=== PATIENT | male | born 1950 | race Caucasian/White ===

== ENCOUNTER 2017-03-28 14:24 | Inpatient (IN) | payer BC ==
[2017-03-28 15:13] LABS: #Basophils 0.1 thou/uL (0.0-0.2); #Eosinphils 0.1 thou/uL (0.0-0.7); #Lymphocytes 2.7 thou/uL (1.20-3.40); #Monocytes 0.7 thou/uL (0.11-0.59); #Neutrophils 7.1 thou/uL (1.40-6.50); %Basophils 1.1 % (0.0-1.0); %Eosinophils 0.5 % (0.0-10.0); %Lymphocytes 25.2 % (21.0-51.0); %Monocytes 6.9 % (0.0-10.0); %Neutrophils 66.3 % (42.0-75.0); Hemoglobin 16.4 g/dL (14.0-18.0); Mean Corpuscular HGB CONC 32.6 g/dL (32.0-36.0); Mean Corpuscular Hemoglobin 29.8 pg (27.0-31.0); Mean Corpuscular Volume 91.3 fl (80.0-94.0); Mean Platelet Volume 7.9 fL (7.4-10.4); Platelet Count 306 thou/uL (130-400); Red Blood Cell (RBC) Count 5.49 mill/uL (4.70-6.10); White Blood Cell (WBC) Count 10.8 thou/uL (4.8-10.8)
[2017-03-28 15:33] LABS: ALT (SGPT) 18 U/L (8-55); AST (SGOT) 14 U/L (5-34); Albumin 4.3 g/dL (3.4-4.8); Alkaline Phosphatase 102 U/L (40-150); Anion Gap 14 mmol/L (10-20); BUN (Urea Nitrogen) 22 mg/dL (8.4-25.7); Bilirubin, Total 1.1 mg/dL (0.2-1.2); Calc. Creatinine Clearance 0 mL/min (70-130); Calcium 9.7 mg/dL (7.8-10.44); Carbon Dioxide 25 mmol/L (23-31); Chloride 107 mmol/L (98-107); Estimated GFR-MDRD 77; Globulin 2.6 g/dL (2.4-3.5); Glucose 108 mg/dL (80-115); Potassium 4.1 mmol/L (3.5-5.1); Protein, Total 6.9 g/dL (5.8-8.1); Sodium 142 mmol/L (136-145)
[2017-03-28 15:37] LABS: CKMB 2.3 ng/mL (0-6.6); Troponin I 0.096 ng/mL (< 0.028)
--- NOTE | 2017-03-28 15:51 | RAD ---
PA AND LATERAL VIEWS OF CHEST: Date: 03/28/17 HISTORY: Chest pain. FINDINGS: The heart size is borderline. The lungs are expanded without focal areas of consolidation, pneumothor ax, odell pulmonary edema, or pleural effusions. No acute osseous abnormalities are seen. IMPRESSION: No radiographic evidence of acute cardiopulmonary process. POS: [facility]
[2017-03-28 18:58] LABS: Troponin I 0.113 ng/mL (< 0.028)
[2017-03-28] MEDS ORDERED: HYDROcodone/Acetaminophen 10/325 mg Tablet PO PRN (19:53)
[2017-03-28] MEDS ORDERED: HYDROcodone/Acetaminophen 5/325 mg Tablet PO PRN (19:53)
[2017-03-28] MEDS ORDERED: Acetaminophen 325 MG TAB PO PRN (19:53)
[2017-03-28] MEDS ORDERED: Ondansetron HCl/PF 4 MG/2 ML Vial IVP PRN (19:53)
[2017-03-28] MEDS ORDERED: Ondansetron ODT 4 MG TAB PO PRN (19:53)
[2017-03-28] MEDS ORDERED: Enoxaparin Sodium 40 MG/0.4 ML SYRINGE SC SCH (20:15)
[2017-03-28] MEDS: Famotidine/PF 20 mg/2ml Vial SLOW IVP SCH (20:30)
[2017-03-28 21:10] LABS: CKMB 2.1 ng/mL (0-6.6)
--- NOTE | 2017-03-28 21:23 | HP ---
DATE OF ADMISSION: 03/28/2017 PRIMARY CARE PHYSICIAN: Ky Rocha MD INCOME TAX RETURN PREPARER: Jeannette Ponce MD TIME OF SERVICE: 2000 hours. CHIEF COMPLAINT: Atrial flutter. HISTORY OF PRESENT ILLNESS: Mr. Cleveland is a pleasant 66-year-old white male with history of atrial f lutter about 3-4 years ago. At that time, he developed acute tachycardia, went to see his primary ca re physician, was found, and was admitted to the hospital. He underwent ablation from a jacquard card cutter that came from [place] at that time and has not had a problem since then. He sees Dr. Ponce on a ye antionette basis. Last saw him in 10/2016. He is maintained on lisinopril, aspirin, and Crestor and was doing fine until about 3 days ago. At that time, he started feeling flushed. He took his blood pressure and noticed his pulse was in th e 120s. He had no lightheadedness at that time. He did have some tightness to the neck and back mus cles. He went to work on Sunday and occasionally had some shortness of breath and lightheadedness, but neve r passed out. He continued to watch his heart rate. While he was sedentary, he noticed it was in th e 130s, but when up walking around dropped down to 70s per his Fitbit. He continued to have problems on Sunday similarly. 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 Rocha's office. There, he was noted to have a heart rate in the 130s and looked like it was before. He was sent to the emergency department here to be admit erin for workup. He does complain of some chest tightness in the central area as if he was running ou t in the cold wind, though he has not been. He denies any shortness of breath. No nausea or vomitin g. No diarrhea or constipation. No fevers or chills. No cough or sputum production. No sick conta cts. In the emergency department here, he was noted to be in atrial fibrillation or atrial flutter with th e heart rate in the 130s. He was given 10 of IV Cardizem and repeat EKG did show P-waves about 300 b eats per minute with a variable block. We were called for admission. On arrival to the floor, he is feeling fine. Denies any other current complaints. PAST MEDICAL HISTORY: 1. Hypertension. 2. Hyperlipidemia. 3. Atrial flutter. PAST SURGICAL HISTORY: 1. Atrial flutter ablation 3-4 years ago by a jacquard card cutter from [place]. 2. PTCA about one year later that showed no significant coronary disease. 3. Right Achilles repair 8-10 years ago. 4. Hernia repair in the 1970s. HOME MEDICATIONS: 1. Lisinopril 20 mg p.o. daily. 2. Aspirin 81 mg daily. 3. Crestor 20 mg p.o. at bedtime. 4. Vitamin D daily. ALLERGIES: NKDA. FAMILY HISTORY: Negative for clotting or bleeding disorder. No immune dysfunction. No blood tumors . No premature coronary disease. SOCIAL HISTORY: Negative for habits x3. He is and monogamous. REVIEW OF SYSTEMS: A 10-point review of systems was performed, negative for all other systems except as stated as per HPI. PHYSICAL EXAMINATION: VITAL SIGNS: Temperature 97.7, pulse currently 92, blood pressure 109/54, respiratory rate 18, satti ng 95% on room air. GENERAL: He is awake. He is alert. He is oriented x3. He is a well-developed and well-nourished w blanco male who appears to be in no acute distress. HEENT: Normocephalic, atraumatic. Pupils are equal, round, and reactive to light bilaterally. Muco us membranes are moist. He has no visible lesions or thrush. NECK: Supple. No lymphadenopathy, JVD, or thyromegaly. He has normal carotid upstroke. There are no bruits. LUNGS: Clear to auscultation bilaterally. He has no wheezes, no rales, no rhonchi. He has good air movement. Symmetrical chest excursion. There is no prolonged expiratory phase. CARDIOVASCULAR: Regular and tachycardic. Per my exam, it is just over 100. He has no audible murmu rs. ABDOMEN: Obese. It is nontender and nondistended. He has no masses, no organomegaly. EXTREMITIES: No cyanosis. No clubbing. Trace ankle edema. He has 2+ peripheral pulses in the dors jeffrey pedis and posterior tibial arteries. SKIN: Warm, moist, and well perfused. He has no rashes or lesions. MUSCULOSKELETAL: Normal to inspection. He has no joint inflammation. No palpable effusions. Good range of motion. His right calcaneal tendon area does feel a little thicker than the left. NEUROLOGIC: Cranial nerves II-XII are grossly intact. He has 5/5 strength in all 4 of his extremiti es. He has no focal deficits. Normal speech pattern. LABORATORY DATA: Sodium is 142, potassium 4.1, chloride 107, bicarb 25, BUN 22, creatinine 0.98, and glucose 109 with a calcium of 9.7. Liver functions are completely within normal limits. CBC showed a white count of 10.8, hemoglobin 16 .4, hematocrit of 50.1, and platelet count is 306,000. Biomarker showed a CK-MB of 2.3. Troponin I was 0.096 and TSH was 1.37. Chest x-ray showed no acute cardiopulmonary disease. ASSESSMENT AND PLAN: 1. Atrial flutter, paroxysmal. The patient appears to have had a recurrence. He responded well to Cardizem in the emergency department. We will give another dose of IV Cardizem here and then put him on 60 mg p.o. q.6 hours, as we are out of IV Cardizem at present. We will ask Dr. Ponce to evalua te. 2. Demand ischemia. Troponin is 0.096. We will trend his biomarkers and get serial cardiac biomark ers through the night. We will place him on 2 liters nasal cannula continuous oxygen. I have not pu t him on nitroglycerin paste. He did have a negative cath about 2 years ago. 3. Hypertension, essential. The patient normally on lisinopril. We will hold his lisinopril tonigh t as he is going to be on Cardizem instead, and we will have p.r.n. hydralazine as needed. 4. Hyperlipidemia, on Crestor. We will continue.
[2017-03-29 02:58] VITALS: BMI 39.1
[2017-03-29 05:43] LABS: CKMB 1.9 ng/mL (0-6.6); Troponin I 0.096 ng/mL (< 0.028)
[2017-03-29] MEDS: Famotidine/PF 20 mg/2ml Vial SLOW IVP SCH (08:40)
[2017-03-29] MEDS ORDERED: Enoxaparin Sodium 40 MG/0.4 ML SYRINGE SC SCH (09:00)
--- NOTE | 2017-03-29 11:00 | PDOC.PN ---
- Subjective Encounter Start Date: 03/29/17 Encounter Start Time: 10:58 Subjective: Seen and examined feeling better - Objective Resuscitation Status: Resuscitation Status FULL:Full Resuscitation Vital Signs & Weight: Vital Signs (12 hours) Temp Pulse Resp BP BP Pulse Ox 03/29/17 09:11 134 H 115/71 03/29/17 05:32 129 H 104/68 03/29/17 05:30 129 H 20 104/68 96 03/29/17 03:55 97.6 F 66 18 119/72 98 Weight Weight 289 lb I&O: 03/28/17 03/29/17 03/30/17 06:59 06:59 06:59 Intake Total 466 Output Total 300 Balance 166 Result Diagrams: 03/28/17 15:02 03/28/17 15:02 Phys Exam - Physical Examination Constitutional: NAD HEENT: PERRLA, moist MMs, sclera anicteric, TM's clear Neck: no nodes, no JVD, supple, full ROM Respiratory: no wheezing, no rales, no rhonchi, clear to auscultation bilateral Cardiovascular: RRR, no significant murmur, no rub Gastrointestinal: soft, non-tender, no distention, positive bowel sounds Musculoskeletal: no edema, pulses present Dx/Plan (1) Atrial flutter, paroxysmal Code(s): I48.92 - UNSPECIFIED ATRIAL FLUTTER Status: Acute (2) Hypertension Code(s): I10 - ESSENTIAL (PRIMARY) HYPERTENSION Status: Acute (3) Dyslipidemia Code(s): E78.5 - HYPERLIPIDEMIA, UNSPECIFIED Status: Acute (4) Demand ischemia Code(s): I24.8 - OTHER FORMS OF ACUTE ISCHEMIC HEART DISEASE Status: Acute (5) S/P ablation of atrial flutter Code(s): Z98.89 - OTHER SPECIFIED POSTPROCEDURAL STATES * DO NOT USE *; Z86.79 - PERSONAL HISTORY OF OTHER DISEASES OF THE CIRCULATORY SYSTEM Status: Acute - Plan 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
--- NOTE | 2017-03-29 11:02 | PRG ---
CARDIOLOGY CONSULTATION NOTE DATE OF CONSULTATION: 03/29/2017 REASON FOR CONSULTATION: Atrial flutter. HISTORY OF PRESENT ILLNESS: Mr. Seun Cleveland is a delightful 66-year-old gentleman who has a history of atrial flutter ablation in 2014. He had a borderline stress test, underwent cardiac catheterization in 2015 as well showing no flow limiting disease. He has done well up until the last few days, felt weakness and fatigue, lack of energy. Finally, went to doctor. He was found to have atrial flutter with a rapid rate and was send to the emergency room. He has been here since the last night. No chest pain or pressure, just fatigue. MEDICATIONS: 1. Aspirin. 2. Rosuvastatin. 3. Lisinopril. ALLERGIES: None known. SOCIAL HISTORY: No alcohol or tobacco. REVIEW OF SYSTEMS: Constitutional: No significant weight gain or loss. Vision : No changes. Hearing: No changes. Pulmonary: No cough or wheezing. Gastrointestinal: No nausea, vomiting or diarrhea. Skin: No rashes. Neurologic: No unilateral weakness or numbness. Psychiatric: No unusual depression or anxiety. Hematologic: No unusual bruising. Genitourinary: No burning with urination. PHYSICAL EXAMINATION: GENERAL: This is a pleasant 66-year-old gentleman resting comfortably. VITAL SIGNS: His blood pressure is 115/74, pulse is variable anywhere between 80 and 140. HEENT: Eyes; sclerae nonicteric. Mouth; mucous membranes moist. NECK: Supple. No lymphadenopathy. LUNGS: Clear. No wheezing. CARDIAC: Some irregularity. No murmur, rub or gallop. ABDOMEN: Soft and nontender. EXTREMITIES: No clubbing or cyanosis. There is no edema. IMAGING DATA: EKG showed a narrow complex tachycardia when the rhythm is blocked out, it is obviously atrial flutter. ASSESSMENT: 1. Recurrent atrial flutter. 2. Increased troponin level, demand ischemia. 3. Hypertension. 4. Hypercholesterolemia. PLAN: 1. Keep n.p.o. 2. Dr. Hernandez has been notified of the patient's situation. We will keep him n.p.o. for now for possible repeat atrial flutter ablation. [facility]
[2017-03-29 12:45] LABS: CKMB 1.9 ng/mL (0-6.6); Troponin I 0.085 ng/mL (< 0.028)
--- NOTE | 2017-03-29 12:47 | CON-2 ---
DATE OF CONSULTATION: 03/29/2017 TIME OF SERVICE: 0930 RESIDENT PHYSICIAN: Krzysztof Steele M.D. ATTENDING PHYSICIAN: Jeannette Ponce M.D. REFERRING PROVIDER: Geovany Dailey M.D. REASON FOR CONSULTATION: Atrial flutter. HISTORY OF PRESENT ILLNESS: Mr. Cleveland is a pleasant 66-year-old male with past medical history of hypertension, hyperlipidemia, and atrial flutter, which was treated with ablation in 2014. He presented as an admission from the ER with a 3-day history of generalized weakness, malaise, and palpitations. He also noted that while at rest, his heart rate upon sitting it was approximately 130 beats per minute, but upon standing would drop to 70 beats per minute. Over the course of 2-3 days, he noted that his heart rate became inconsistently elevated in the 120s to 140s. He was seen by his primary care provider on the day of admission who recommended that he go to the emergency room for evaluation and treatment. In the ER, EKG was consistent with atrial flutter. He received 2 rounds of diltiazem 10 mg IV push. He was started on oral diltiazem 60 mg a.c. and at bedtime with p.r.n. diltiazem pushes. PAST MEDICAL HISTORY: 1. Hypertension. 2. Hyperlipidemia. 3. Atrial flutter, status post ablation in 2014. PAST SURGICAL HISTORY: 1. Right-sided atrial flutter ablation in 2014. 2. Cardiac catheterization in 2014 showing no significant coronary artery disease. 3. Right Achilles surgery. 4. Hernia repair. MEDICATIONS: 1. Lisinopril 20 mg daily. 2. Aspirin 81 mg daily. 3. Crestor 20 mg at bedtime. 4. Vitamin D. ALLERGIES: No known drug allergies. FAMILY HISTORY: The patient states his father had a 3-4 vessel cardiac bypass in his 50s. SOCIAL HISTORY: Denies alcohol, tobacco or illicit drug use. REVIEW OF SYSTEMS: On the day of evaluation, the patient reports occasional flush feeling with diltiazem pushes and palpitations. All other review of systems are negative. PHYSICAL EXAMINATION: VITAL SIGNS: Temperature 97.6, blood pressure 115/71, pulse prior to diltiazem push 134 after diltiazem push 80-90s, respiratory rate 20, oxygen saturation 96 % on room air. GENERAL: No acute distress. Alert and oriented x4. CARDIOVASCULAR: Normal rate, regular rhythm with no significant murmurs. Examination occurred after he had received an additional bolus of IV diltiazem. LUNGS: Clear to auscultation bilaterally. EXTREMITIES: Trace pitting edema of lower extremities bilaterally. LABORATORY FINDINGS: White blood cell count 10.8, hemoglobin 16.4, hematocrit 50.1, platelets 306, neutrophils 6.3. CMP: Sodium 142, potassium 4.1, chloride 107, bicarbonate 25, BUN 22, creatinine 0.98, estimated GFR 77, glucose 108. Calcium 9.7, bilirubin 1.1, AST 14, ALT 18, alkaline phosphatase 102, serum protein 6.9, albumin 4.3, globulin 2.6. Cardiac markers, CK-MB at time of admission 2.3, trended down to 1.9, troponin at time of admission 0.096, trended up to 1.113 and back down to 0.096. Other labs, TSH 1.3729. IMAGING: Chest x-ray in the ER revealed no acute cardiopulmonary processes. ASSESSMENT: Mr. Cleveland is a 66-year-old male with past medical history of previous atrial flutter, status post ablation who presents with a 4- day history of generalized malaise and palpitations. He was found to be in atrial flutter with a variable block that has responded to IV diltiazem. PLAN: 1. Atrial flutter: Electrophysiology has been consulted for repeat ablation. Patient ate at approximately 9:00 a.m. this morning and will need to be fasting 8 hours before procedure could occur. He has been made n.p.o. at this time. In case, he is able to undergo ablation today. We will provide p.r.n. medications for elevated heart rates and symptom management. 2. Hypertension. We will hold lisinopril since he has been receiving diltiazem. 3. Hyperlipidemia. We will continue Crestor at time of discharge. History, physical exam, and management of this patient were discussed with Dr. Ponce who was in agreement with this assessment and plan unless otherwise stated in his attestation. [facility] NETWORK[facility]
[2017-03-29] MEDS ORDERED: Metoprolol Tartrate 5 MG/5 ML VIAL IVP PRN (14:50)
--- NOTE | 2017-03-29 17:53 | CON ---
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 His problems are: 1. Recurrent atrial arrhythmias. A. Prior history of atrial flutter requiring CTI dependent, status post ablation by Dr. Chawla in 08/05/2014. B. Presentation with recurrent atrial flutter, possibly status post typical noted this admission. 2. No significant structural heart disease by history. A. 2D echo from 07/13/2014 shows LVEF 55%-60%, left atrial enlargement, no significant stenosis or regurgitation. B. History of left heart catheterization by Dr. Ponce a couple of years ago was without significant coronary artery disease, according to the patient. 3. Coronary artery risk factors including hypertension, hypercholesterolemia on Crestor and elevated BMI. ALLERGIES: None. MEDICATIONS: Lisinopril 20 mg daily, aspirin 81 mg daily, Crestor 20 mg daily, vitamin D daily. SUBJECTIVE: Mr. Cleveland is here with symptoms of palpitations. He started noticing this on Sunday when his blood pressure cuff machine also convert increased heart rates. His heart rates were rate fluctuating eventually and cause some flushing sensation, mild tightness in the neck and the back muscles were seen. He has seen his primary care physician and he was subsequently admitted to the hospital. He was noted to be in atrial flutter in the ER. His troponin was borderline elevated at 0.096, diltiazem was started. REVIEW OF SYSTEMS: The rest of 12-point system otherwise unremarkable. PAST MEDICAL HISTORY: As above. SOCIAL HISTORY: Patient denies smoking, ETOH, or drug use. PAST SURGICAL HISTORY: Significant for Achilles tendon repair, hernia repair in 1970s. FAMILY HISTORY: Negative for clotting or bleeding disorder. No premature coronary artery disease. OBJECTIVE: VITAL SIGNS: Blood pressure is 115/71, heart rate 134, respirations 12, the patient is afebrile. GENERAL: He is alert and oriented man, in no apparent distress. NECK: Supple. Jugular veins are not distended. CHEST: Coarse without crackles. CARDIAC: Heart sounds are irregularly irregular. S1, S2, variable. No murmur or gallop. ABDOMEN: Benign. Bowel sounds positive. EXTREMITIES: Lower extremities without edema, clubbing or cyanosis. Pulses are adequate. NEUROLOGIC: Patient is nonfocal. MUSCULOSKELETAL: No joint swelling or deformities. SKIN: Without rash. DATABASE: The EKG is reviewed, initially with an atrial flutter with 2:1 AV conduction, morphology is somewhat difficult to elicit. Subsequent EKGs reveal more better controlled atrial flutter rates. A 4:1, 5:1 conduction is also seen. LABORATORY DATA AND IMAGING: White blood cell count 10, hemoglobin 16.4, platelet count 306. Sodium 142, potassium 4.5, BUN is 22, creatinine 0.98, AST and ALT is 14 and 18. Troponin I is 0.96, 0.113, 0.1, and 0.096 consecutively. TSH is 1.3. Chest x-ray shows no cardiopulmonary disease. ASSESSMENT AND PLAN: Mr. Cleveland is a pleasant 66-year-old man with prior history of atrial flutter who underwent the cavotricuspid isthmus ablation back in 07/2015. He has no significant structural heart disease by history. Now presented with flutter-like symptoms for 4 days. On EKG there is atrial flutter with rapid rates, has borderline troponin changes likely demand ischemia and not suspecting definite acute coronary syndrome. He has not been anticoagulated. PLAN: We will reevaluate his EKG now that is flutter rate is better control to assess his morphology. We might consider radiofrequency ablation of this atrial flutter, possibly this admission. Risks and benefits of procedure were discussed. He might need ARIELLE prior to that. We will schedule him for a near date. In the meantime, agree with continued rate control and anticoagulants, which could be held for the date of the procedure. [facility]
[2017-03-29] MEDS: Famotidine 20 MG TAB PO SCH (20:34)
--- NOTE | 2017-03-30 08:39 | PDOC.PN ---
- Subjective Encounter Start Date: 03/30/17 Encounter Start Time: 08:38 Subjective: seen and examined doing ok - Objective Resuscitation Status: Resuscitation Status FULL:Full Resuscitation Vital Signs & Weight: Vital Signs (12 hours) Temp Pulse Resp BP BP BP Pulse Ox 03/30/17 07:46 98.3 F 105 H 17 110/73 95 03/30/17 04:01 97.5 F L 96 20 111/69 95 03/29/17 23:58 107/66 Weight Weight 288 lb 6.4 oz I&O: 03/29/17 03/30/17 03/31/17 06:59 06:59 06:59 Intake Total 466 1400 Output Total 300 1125 Balance 166 275 Result Diagrams: 03/28/17 15:02 03/28/17 15:02 Phys Exam - Physical Examination Constitutional: NAD HEENT: PERRLA, moist MMs, sclera anicteric, TM's clear, oral pharynx no lesions Neck: no nodes, no JVD, supple, full ROM Respiratory: no wheezing, no rales, no rhonchi, clear to auscultation bilateral Cardiovascular: RRR, no significant murmur, no rub Gastrointestinal: soft, non-tender, no distention, positive bowel sounds Musculoskeletal: no edema, pulses present Dx/Plan (1) Atrial flutter, paroxysmal Code(s): I48.92 - UNSPECIFIED ATRIAL FLUTTER Status: Acute (2) Hypertension Code(s): I10 - ESSENTIAL (PRIMARY) HYPERTENSION Status: Acute (3) Dyslipidemia Code(s): E78.5 - HYPERLIPIDEMIA, UNSPECIFIED Status: Acute (4) Demand ischemia Code(s): I24.8 - OTHER FORMS OF ACUTE ISCHEMIC HEART DISEASE Status: Acute (5) S/P ablation of atrial flutter Code(s): Z98.89 - OTHER SPECIFIED POSTPROCEDURAL STATES * DO NOT USE *; Z86.79 - PERSONAL HISTORY OF OTHER DISEASES OF THE CIRCULATORY SYSTEM Status: Acute - Plan cont current plan of care, plan discussed w/ family Radio frequency ablation planned for today * .
--- NOTE | 2017-03-30 09:48 | PRG ---
DATE OF SERVICE: 03/30/2017 SUBJECTIVE: Mr. Cleveland is doing fine. OBJECTIVE: VITAL SIGNS: Blood pressure 110/73, pulse is 130, it is atrial flutter. LUNGS: Clear. CARDIAC: Tachycardic. ABDOMEN: Soft, nontender. EXTREMITIES: No edema. GENERAL: The patient is completely comfortable. ASSESSMENT: Recurrent atrial flutter. PLAN: Atrial flutter ablation today. Home following that, will need to be anticoagulated with Xarel to for at least a month.
[2017-03-30] MEDS: Famotidine 20 MG TAB PO SCH (10:20)
[2017-03-30] MEDS ORDERED: Clopidogrel Bisulfate 75 MG TAB ONE (12:03)
[2017-03-30] MEDS ORDERED: Lidocaine 1% (PF) 30 ML VIAL ONE (13:16)
[2017-03-30] MEDS ORDERED: Diprivan 40 ML ONE (13:16)
[2017-03-30] MEDS ORDERED: Propofol 500 MG/50 ML VIAL ONE ×3 (13:19→15:12)
[2017-03-30] MEDS ORDERED: Heparin 10,000 UNITS/1 ML VIAL ONE (13:46)
[2017-03-30] MEDS ORDERED: Isoproterenol 0.2 MG/1 ML AMP ONE (15:08)
--- NOTE | 2017-03-30 15:28 | ECHO ---
CARDIOLOGY PROCEDURE NOTE: Date: 03/30/17 PROCEDURE: Transesophageal echocardiogram. INDICATION FOR PROCEDURE: 66-year-old gentleman with atrial flutter who was advised to undergo a transesophageal echocardiogram prior to undergoing the ablation. He was taken to the recovery area where he underwent short-acting propofol. Transesophageal probe was easily passed down the distal esophagus. IMPRESSION: 1. Normal left ventricular systolic function. Ejection fraction is estimated at 50-55%. 2. Tachycardia. 3. No evidence of left atrial or left atrial appendage thrombus. 4. Flow in the left atrial appendage greater than 1 meter per second. 5. No evidence of a patent foramen ovale. 6. Mild mitral valve regurgitation. 7. Mild tricuspid valve regurgitation. 8. Trace aortic valve regurgitation. 9. There were no complications or difficulties encountered.
[2017-03-30] MEDS ORDERED: Furosemide 40 MG/4 ML VIAL ONE (15:42)
[2017-03-30] MEDS ORDERED: Ondansetron HCl/PF 4 MG/2 ML Vial IVP PRN ×2 (15:55→17:49)
[2017-03-30] MEDS ORDERED: Propofol 200 MG/20 ML VIAL ONE (16:20)
[2017-03-30 17:39] VITALS: BP 144/88; TEMP 98.2
[2017-03-30] MEDS ORDERED: Acetaminophen 325 MG TAB PO PRN (17:49)
[2017-03-30] MEDS ORDERED: diphenhydrAMINE 25 MG CAP PO PRN (17:49)
[2017-03-30] MEDS ORDERED: Nitroglycerin 0.4 MG TAB (25 Tab Bottle) SL PRN (17:49)
[2017-03-30] MEDS ORDERED: Silver Sulfadiazine 1% Cream 50 GM JAR TOP PRN (17:49)
[2017-03-30] MEDS ORDERED: Bisacodyl 10 MG SUPP PR PRN (17:49)
[2017-03-30] MEDS ORDERED: Bisacodyl 5 MG TAB PO PRN (17:49)
[2017-03-30] MEDS ORDERED: Mag-Al 1200 mg/1200 mg/30 ML UDCUP PO PRN (17:49)
[2017-03-30] MEDS ORDERED: traMADol HCl 50 MG TAB PO PRN (17:49)
[2017-03-30] MEDS ORDERED: Temazepam 15 MG CAP PO PRN (17:49)
--- NOTE | 2017-03-31 00:25 | CCLSPC ---
DATE OF PROCEDURE: 03/30/2017 ELECTROPHYSIOLOGY STUDY AND RADIOFREQUENCY ABLATION REPORT REFERRING PHYSICIAN: Jeannette Ponce M.D. REASON FOR PROCEDURE: Mr. Cleveland is a 66-year-old man with prior history of atrial flutter with cavotricuspid isthmus ablation performed in 2014, now here with a recurrence of atrial flutter. The EKG demonstrates possible isthmus dependent counterclockwise flutter. The patient underwent ARIELLE prior to the procedure demonstrating no intracardiac clots. PROCEDURE IN DETAIL: The patient received deep sedation by anesthesia specialist. The right femoral venous area was prepped, draped and anesthetized using subcutaneous lidocaine. The right femoral vein was accessed with ultrasound guidance x2. Two 8-Arabic short sheaths were introduced. Through this, a Decapolar catheter was advanced to the right atrium, right ventricle, His bundle and CS area. Pacing, mapping and recording were performed in each location. The baseline rhythm was atrial flutter with cycle length about 243 milliseconds. Following that, overdrive pacing of atrial flutter was attempted from the mid CS and the proximal CS demonstrating post-pacing intervals, shorter by the proximal CS electrodes suggestive of possible right atrial flutter. Following that, a ThermoCool SF catheter was advanced to the right atrium. 3D map of the right atrium obtained and activation of atrial flutter was also achieved demonstrating flutter propagation through the isthmus. Following that , overdrive pacing of the flutter was attempted at the cavotricuspid isthmus, but it terminated the arrhythmia. Following that, the cavotricuspid isthmus was mapped during CS proximal pacing demonstrating presence of a previous ablation line with local activation timings up to 170 milliseconds ------ at the IVC junction, though local activation timings were measured to be 137 milliseconds suggestive of possible breakthrough of the activation through the previously abated line. In this area, multiple cervantes were delivered, a total of 3 at 40 ford. This increased the local activation timing up to 200 milliseconds. Repeated attempts were made to induce the arrhythmia, but failed to induce any further atrial arrhythmias. CONCLUSION: 1. Typical isthmus dependent atrial flutter present at baseline. 2. Redo cavotricuspid isthmus ablation was performed increasing the trans- isthmus times as above. 3. No recurrent arrhythmias are inducible on and off Isuprel. 4. The transisthmus time prolongation persisted on Isuprel. PLAN: Resume short term anticoagulation and routine post-ablation care. POS: [facility]
[2017-03-31] MEDS ORDERED: Rivaroxaban 10 MG TAB PO SCH (21:00)
== END 2017-03-30 19:48 | disposition home or self-care (01) | DRG 274 ==
LOC: ERS 14:24 → 2NO 16:42
PROVIDERS: ADMIT Internal Medicine Infectious Disease; ATTEND Internal Medicine Infectious Disease
PROC: 02583ZZ Destruction of Conduction Mechanism, Percutaneous Approach (ICD-10-PCS; principal; 2017-03-30)
PROC: 4A023FZ Measurement of Cardiac Rhythm, Percutaneous Approach (ICD-10-PCS; 2017-03-30)
PROC: 4A0234Z Measurement of Cardiac Electrical Activity, Percutaneous Approach (ICD-10-PCS; 2017-03-30)
PROC: 02K83ZZ Map Conduction Mechanism, Percutaneous Approach (ICD-10-PCS; 2017-03-30)
PROC: B24BZZ4 Ultrasonography of Heart with Aorta, Transesophageal (ICD-10-PCS; 2017-03-30)
DX: I48.92 Unspecified atrial flutter (principal); I24.8 Other forms of acute ischemic heart disease; I08.1 Rheumatic disorders of both mitral and tricuspid valves; I10 Essential (primary) hypertension; Z95.5 Presence of coronary angioplasty implant and graft; E78.00 Pure hypercholesterolemia, unspecified
CPT/HCPCS: 36415; 71046; 76942; 80053; 82553; 84443; 84484; 85025; 93005; 93010; 93312; 93613; 93621; 93623; 93653; 96374; 96376; A4216; C1730; C1769; J1644; J1650; J1940; J2001; J2704; J3490; S0028

== ENCOUNTER 2017-05-04 20:30 | Outpatient (CLI) | payer BC | END 2017-05-04 20:31 | disposition home or self-care (01) | LOC: SLEEPLAB 20:30 | PROVIDERS: ATTEND Family Medicine | DX: G47.33 Obstructive sleep apnea (adult) (pediatric) (principal); G47.9 Sleep disorder, unspecified; R53.83 Other fatigue; R06.83 Snoring; I10 Essential (primary) hypertension; R40.0 Somnolence; I48.92 Unspecified atrial flutter | CPT/HCPCS: 95811 ==

== ENCOUNTER 2018-07-17 07:19 | Day surgery (SDC) | payer BC ==
[2018-07-16 14:30] VITALS: BMI 35.6
--- NOTE | 2018-07-17 20:28 | EKG ---
Test Reason : S/P CARDIOVERSION Blood Pressure : / mmHG Vent. Rate : 055 BPM Atrial Rate : 055 BPM P-R Int : 192 ms QRS Dur : 110 ms QT Int : 420 ms P-R-T Axes : 054 -09 025 degrees QTc Int : 401 ms Sinus bradycardia Incomplete right bundle branch block Minimal voltage criteria for LVH, may be normal variant Borderline ECG When compared with ECG of 30-MAR-2017 16:49, Premature ventricular complexes are no longer Present Confirmed by PJ OHARA, SLluvia ([id number]) on 07/17/2018 8:27:39 PM Referred By: [email or web address] Confirmed By:DR. Len OLIVA MD
== END 2018-07-17 08:15 | disposition home or self-care (01) ==
LOC: CCL 07:19
PROVIDERS: ATTEND Internal Medicine Cardiovascular Disease
DX: I48.3 Typical atrial flutter (principal); I48.91 Unspecified atrial fibrillation; I10 Essential (primary) hypertension; I25.10 Atherosclerotic heart disease of native coronary artery without angina pectoris; E78.00 Pure hypercholesterolemia, unspecified; Z53.8 Procedure and treatment not carried out for other reasons; Z95.1 Presence of aortocoronary bypass graft; Z79.82 Long term (current) use of aspirin; Z79.01 Long term (current) use of anticoagulants; Z79.899 Other long term (current) drug therapy
CPT/HCPCS: 93005; 93010

== ENCOUNTER 2018-08-12 07:42 | Observation (INO) | payer BC ==
[2018-08-09 08:39] VITALS: BMI 36.3
[2018-08-12 08:44] LABS: #Basophils 0.1 thou/uL (0.0-0.2); #Eosinphils 0.1 thou/uL (0.0-0.7); #Lymphocytes 2.1 thou/uL (1.20-3.40); #Monocytes 0.6 thou/uL (0.11-0.59); #Neutrophils 5.4 thou/uL (1.40-6.50); %Basophils 0.8 % (0.0-1.0); %Eosinophils 1.2 % (0.0-10.0); %Lymphocytes 25.4 % (21.0-51.0); %Monocytes 7.5 % (0.0-10.0); Mean Corpuscular HGB CONC 32.5 g/dL (32.0-36.0); Mean Corpuscular Hemoglobin 29.3 pg (27.0-31.0); Mean Platelet Volume 7.6 fL (7.4-10.4); Platelet Count 240 thou/uL (130-400); Red Blood Cell (RBC) Count 5.11 mill/uL (4.70-6.10); White Blood Cell (WBC) Count 8.3 thou/uL (4.8-10.8)
[2018-08-12 08:50] LABS: INR-International Normal Ratio 1.2; PTT 36.7 SEC (22.9-36.1); Prothrombin Time 14.9 SEC (12.0-14.7)
[2018-08-12 09:02] LABS: Anion Gap 12 mmol/L (10-20); BUN (Urea Nitrogen) 15 mg/dL (8.4-25.7); Calc. Creatinine Clearance 155 mL/min (70-130); Calcium 9.8 mg/dL (7.8-10.44); Carbon Dioxide 26 mmol/L (23-31); Chloride 105 mmol/L (98-107); Estimated GFR-MDRD Greater than 90; Glucose 99 mg/dL (80-115); Potassium 3.8 mmol/L (3.5-5.1); Sodium 139 mmol/L (136-145)
[2018-08-12] MEDS ORDERED: Heparin 10,000 UNITS/1 ML VIAL ONE ×2 (09:42→13:05)
[2018-08-12] MEDS ORDERED: Lidocaine 1% (PF) 30 ML VIAL ONE (09:42)
[2018-08-12] MEDS ORDERED: Fentanyl 100 MCG/2 ML VIAL ONE ×2 (09:49→11:49)
[2018-08-12] MEDS ORDERED: SUGAMMADEX SODIUM 200 MG/2 ML VIAL ONE (10:06)
[2018-08-12] MEDS ORDERED: Isoproterenol 0.2 MG/1 ML AMP ONE (10:44)
[2018-08-12] MEDS ORDERED: Heparin 25,000 units/D5W 500 ML ONE (10:44)
[2018-08-12] MEDS ORDERED: Protamine Sulfate 50 MG/5 ML VIAL ONE (13:57)
[2018-08-12] MEDS ORDERED: Ketorolac Tromethamine 30 MG/ML VIAL IVP PRN (13:58)
[2018-08-12] MEDS ORDERED: Acetaminophen/Codeine 30-300mg Tablet PO PRN ×2 (14:00)
--- NOTE | 2018-08-12 15:54 | OP ---
DATE OF PROCEDURE: 08/12/2018 PROCEDURES PERFORMED: Electrophysiology study and radiofrequency ablation. REASON FOR PROCEDURE: Mr. Cleveland is a 67-year-old man with prior history of atrial flutter, repeated right atrial ablation procedures, now presenting with atrial fibrillation here for pulmonary venous isolation procedure. DESCRIPTION OF PROCEDURE: The patient received propofol by Anesthesia specialist. Left and right femoral veins were prepped, draped, and anesthetized using subcutaneous lidocaine, and under ultrasound guidance, they were cannulated x2 each side. On the left side, an 11-Guinean sheath was used to advance an intracardiac echocardiogram probe to monitor transseptal procedure and pericardial space throughout the procedure. Also, on the left side, a Preface sheath was used to advance a DuoDeca catheter into the right atrium and CS positions. On the right side, initially two 8-[place]ine[place] short sheaths were introduced, through which a ThermoCool SFST catheter was advanced to the right atrium. The right atrial 3D map, his Bundle, and CS positions were also obtained. Following that, the 8-[place] short sheaths on the right were exchanged to SL1 transseptal sheaths, and with Uploadcare powered needle, a transseptal puncture was performed x2 after IV heparin was administered. IV heparin was adjusted throughout the case with boluses and continuous drip as well to maintain ACT over 350. Following that, through the transseptal sheaths, the ThermoCool SFST catheter and the 20-pole Lasso catheter were advanced to the left atrium. 3D map of the left atrium was obtained, and pulmonary venous isolation was performed in all 4 pulmonary veins. Of note, the left pulmonary veins appeared to be short common trunk, and the right superior pulmonary vein was more than usual. We achieved successful 4-vein pulmonary vein isolation. At this point, the superior lines and inferior lines were placed at the posterior wall achieving posterior wall isolation as well. Isuprel was administered, and any reconnections were re-ablated. The total number of lesions were 39. Total duration was 23 minutes at 40 ford delivered. At the end of the case, a basic EP study was again performed. Burst atrial pacing did not reinduce atrial flutter or fibrillation. The retrograde Wenckebach cycle length via LV pacing was at 400 milliseconds. Antegrade Wenckebach cycle length was 290 milliseconds on the down phase of Isuprel. The AV serge ERP was less than 400/240, and no dual AV serge physiology was seen. Concentric retrograde VA conduction was noted. Also, with proximal CS pacing, the right lateral electrode showed distal to proximal activation suggestive of cavotricuspid isthmus line still patent from prior ablations. The catheters were removed from the left side, and heparin was stopped. The IV heparin effect was reversed. The catheters were exchanged for short sheaths, and all 4 venous accesses were closed with Vascade closure device. Prior to putting the intracardiac echo probe, final check did not reveal significant change in the pericardial space. Small fat pad was again noted. The cine also did not reveal significant change. The patient tolerated the procedure well. No complication noted. CONCLUSIONS: 1. Successful isolation of all 4 pulmonary veins and posterior wall with roof and inferior line. 2. Normal AV serge function. 3. No evidence of accessory pathway. 4. No inducible atrial arrhythmias or significant PAC burden in the end of the case. PLAN: Resume anticoagulation and monitor for recurrent arrhythmias. Job ID: [id number]
[2018-08-12] MEDS ORDERED: Heparin 30,000 units/30 ml VIAL ONE (16:17)
[2018-08-12] MEDS ORDERED: Dexamethasone 20 MG/5 ML VIAL ONE (16:17)
[2018-08-12] MEDS ORDERED: Rocuronium Bromide 10 MG/ML (10ML VIAL) ONE (16:17)
[2018-08-12] MEDS ORDERED: Lidocaine 1% PF 5 ML VIAL ONE (16:17)
[2018-08-12] MEDS ORDERED: PROPOFOL 200 MG/20 ML VIAL ONE (16:17)
[2018-08-12] MEDS ORDERED: diphenhydrAMINE 50 MG/ML VIAL ONE (16:17)
[2018-08-12] MEDS ORDERED: Ondansetron PF 4 MG/2 ML Vial ONE (16:17)
[2018-08-12] MEDS ORDERED: ePHEDrine 50 MG/ML VIAL ONE (16:17)
[2018-08-12] MEDS ORDERED: PHENYLEPHRINE-NS 100 MCG/ML 10 ML SYRINGE ONE (16:17)
[2018-08-12] MEDS ORDERED: Lisinopril 20 MG TAB PO SCH (21:00)
[2018-08-12] MEDS ORDERED: Rosuvastatin 20 MG TAB PO SCH (21:00)
[2018-08-12] MEDS ORDERED: Tamsulosin HCl 0.4 MG CAP PO SCH (21:00)
[2018-08-12] MEDS: Apixaban 5 MG TAB PO SCH (21:42)
[2018-08-13] MEDS ORDERED: Multivit, Therapeutic 1 TAB PO SCH (09:00)
[2018-08-13] MEDS: Apixaban 5 MG TAB PO SCH (09:55)
[2018-08-13 11:59] VITALS: BP 97/57; TEMP 98.3
--- NOTE | 2018-08-13 21:12 | DIS ---
DATE OF ADMISSION: 08/12/2018 DATE OF DISCHARGE: 08/13/2018 DIAGNOSIS: Atrial fibrillation. PROCEDURE PERFORMED: Electrophysiology study and radiofrequency ablation for atrial fibrillation. Successful isolation of all 4 pulmonary veins and posterior wall with roof and inferior line. Normal AV serge function. No evidence of accessory pathway. Not inducible for atrial arrhythmia or significant PAC burden at the end of the case. Total of 23 minutes RF energy lesions delivered. Resume anticoagulation to monitor for recurrent arrhythmias. SUBJECTIVE: Mr. Cleveland is a 67-year-old gentleman with prior history of atrial flutter with repeated right atrial ablated procedures, presenting with atrial fibrillation. He was taken to the EP lab for pulmonary venous isolation as detailed above. He has done well post ablation. He has maintained sinus rhythm by telemetry review and by EKG this morning. He has not had any significant amount of PACs either. REVIEW OF SYSTEMS: An 8-point review of systems was conducted and is negative. The patient denies heart racing, palpitations, chest pain, pressure, syncope, near syncope, stroke, stroke-like symptoms, bleeding at the groin site, nausea, vomiting, diarrhea, or inability to urinate. OBJECTIVE: VITAL SIGNS: Temperature 98.3, pulse 60, blood pressure 116/61, respirations 16, oxygen is 95% on room air. GENERAL: The patient is alert, oriented. Speech is clear. Affect is appropriate. NEUROLOGICAL: Intact and nonfocal. HEART: Heart rate is irregularly irregular with crisp S1 and S2. No signs of tamponade. LUNGS: Clear to auscultation bilaterally. Respirations are even and nonlabored. ABDOMEN: Obese, soft, nontender. EXTREMITIES: Warm and dry to touch without clubbing or cyanosis, but do exhibit trace pitting edema bilaterally. Gait is stable. Bilateral groin sites do not have hematoma or signs of bleeding complications. DISCHARGE INSTRUCTIONS: No driving for at least 2 days until groin sites are pain-free and well healed. No soaking baths for 7 days. No lifting more than 10 pounds for 7 days and may resume activity gradually and as tolerated. Intake [id number] ibuprofen for any chest discomfort post ablation. Continue medications as detailed below. Contact [facility] with any postablation questions or concerns. DISCHARGE MEDICATION LIST: 1. Metoprolol succinate 25 mg daily. Hold for systolic pressure less than 110 or heart rate less than 60. 2. Tamsulosin 0.4 mg at bedtime. 3. Crestor 20 mg at bedtime. 4. Lisinopril 20 mg at bedtime. 5. Vitamin D 2000 units at bedtime. 6. Apixaban 5 mg p.o. b.i.d. 7. Multivitamin daily. New prescriptions provided include: 1. Sucralfate 1 g p.o. before meals and at bedtime x2 weeks. 2. Protonix 40 mg daily x30 days. 3. Furosemide 40 mg p.o. p.r.n. shortness of breath, edema, or weight gain, to be taken with 20 mEq of potassium chloride as needed. CONDITION AT DISCHARGE: Stable. Job ID: [id number]
== END 2018-08-13 13:27 | disposition home or self-care (01) ==
LOC: CCL 07:42 → 2SW 14:52
PROVIDERS: ADMIT Internal Medicine Cardiovascular Disease; ATTEND Internal Medicine Cardiovascular Disease
PROC: 4A023FZ Measurement of Cardiac Rhythm, Percutaneous Approach (ICD-10-PCS; principal; 2018-08-13)
PROC: 4A0234Z Measurement of Cardiac Electrical Activity, Percutaneous Approach (ICD-10-PCS; 2018-08-13)
PROC: 02583ZZ Destruction of Conduction Mechanism, Percutaneous Approach (ICD-10-PCS; 2018-08-13)
DX: I48.91 Unspecified atrial fibrillation (principal); I48.4 Atypical atrial flutter; I10 Essential (primary) hypertension; E78.00 Pure hypercholesterolemia, unspecified; I45.10 Unspecified right bundle-branch block; E66.9 Obesity, unspecified; Z68.37 Body mass index [BMI] 37.0-37.9, adult; Z79.01 Long term (current) use of anticoagulants; Z79.899 Other long term (current) drug therapy
CPT/HCPCS: 36415; 76942; 80048; 85025; 85347; 85610; 85730; 93005; 93010; 93613; 93623; 93656; 93662; C1731; C1732; C1759; C1769; G0378; J1100; J1200; J1644; J2001; J2405; J2704; J2720; J3010; J3490

== ENCOUNTER 2024-11-18 10:19 | Outpatient (CLI) | payer MEDICARE | END 2024-11-18 10:20 | disposition home or self-care (01) | LOC: BICRAD 10:19 | PROVIDERS: ATTEND Family Medicine | DX: M25.562 Pain in left knee (principal); M17.12 Unilateral primary osteoarthritis, left knee; M21.162 Varus deformity, not elsewhere classified, left knee ==